=== PATIENT | female | born 1990 | race Caucasian/White ===

== ENCOUNTER 2024-06-10 00:09 | Emergency (ER) | payer SELFPAY ==
[~2024-06-10] VITALS: Ht 165.1 cm; Wt 52.0 kg
[2024-06-10 00:15] VITALS: O2SAT 98
[2024-06-10] MEDS: LORAZEPAM 2MG/ML INJ IM STA (01:07)
[2024-06-10] MEDS: DIPHENHYDRAMINE 50MG/ML VIAL IM STA (01:07)
[2024-06-10] MEDS: HALOPERIDOL LACTATE 5MG/ML VIAL IM STA (01:07)
[2024-06-10 01:43] LABS: BASOPHILS % 0.2 % (0.0-2.0); EOSINOPHILS % 0.2 % (0.0-5.0); HEMATOCRIT. 35.5 % (36.0-48.0); HEMOGLOBIN. 12.3 g/dL (12.0-16.0); LYMPHOCYTES % 19.1 % (20.0-50.0); MEAN CORPUSCULAR HEMOGLOBIN 31.1 pg (28.0-32.0); MEAN CORPUSCULAR HGB CONC 34.6 g/dL (31.0-37.0); MEAN CORPUSCULAR VOLUME 89.9 fL (81.0-99.0); MEAN PLATELET VOLUME 8.5 fl (7.4-10.4); MONOCYTES % 6.4 % (2.0-8.0); NEUTROPHILS % 74.1 % (40.0-76.0); PLATELET 302 x1000/uL (130-400); RED BLOOD CELL COUNT 3.95 mill/uL (4.2-5.4); RED CELL DISTRIBUTION WIDTH 12.3 % (11.6-14.6); WHITE BLOOD COUNT 11.9 x1000/uL (4.5-11.0)
[2024-06-10 02:05] LABS: CHLORIDE 104 mEq/L (98-107); POTASSIUM 2.9 mEq/L (3.5-5.1); SODIUM 141 mEq/L (136-145)
[2024-06-10 02:06] LABS: CARBON DIOXIDE 22 mEq/L (21-32)
[2024-06-10 02:07] LABS: CALCIUM 9.5 mg/dL (8.7-10.4)
[2024-06-10 02:10] LABS: *AMPHETAMINES SCREEN URINE NEGATIVE (NEGATIVE)
[2024-06-10 02:11] LABS: *BARBITURATES SCREEN URINE NEGATIVE (NEGATIVE); *BENZODIAZEPINES SCREEN URINE NEGATIVE (NEGATIVE); *COCAINE SCREEN URINE NEGATIVE (NEGATIVE); METHADONE URINE SCREEN NEGATIVE (NEGATIVE); OPIATES URINE SCREEN NEGATIVE (NEGATIVE); UREA NITROGEN BLOOD 20 mg/dL (9-23)
[2024-06-10 02:12] LABS: CANNABINOID URINE SCREEN NEGATIVE (NEGATIVE); ECSTASY MDMA SCREEN URINE NEGATIVE (NEGATIVE); GLUCOSE 116 mg/dL (70-105); PHENCYCLIDINE URINE SCREEN NEGATIVE (NEGATIVE)
[2024-06-10 02:13] LABS: ACETAMINOPHEN < 2 ug/mL (10-30); ALANINE AMINOTRANSFERASE 15 IU/L (10-49); ALBUMIN 4.7 g/dL (3.2-4.8); ASPARTATE AMINOTRANSFERASE 35 IU/L (<34)
[2024-06-10 02:14] LABS: BILIRUBIN DIRECT 0.3 mg/dL (<=3.0); PROTEIN TOTAL 7.6 g/dL (6.0-8.3); THYROID STIMULATING HORMONE 1.55 uIU/mL (0.55-4.78)
[2024-06-10] MEDS: POTASSIUM CHLORIDE 20MEQ/PACKET PO ONE (02:15)
[2024-06-10 02:16] LABS: ETHANOL BLOOD < 10 mg/dL (<10)
[2024-06-10 02:19] LABS: HCG SCREEN NEGATIVE
[2024-06-10 09:26] LABS: CHLORIDE 109 mEq/L (98-107); POTASSIUM 3.2 mEq/L (3.5-5.1)
[2024-06-10 09:27] LABS: CARBON DIOXIDE 25 mEq/L (21-32); SODIUM 142 mEq/L (136-145)
[2024-06-10 09:28] LABS: CALCIUM 8.7 mg/dL (8.7-10.4)
[2024-06-10 09:33] LABS: CREATININE 0.7 mg/dL (0.6-1.0); GLUCOSE 78 mg/dL (70-105); UREA NITROGEN BLOOD 18 mg/dL (9-23)
[2024-06-10 17:35] LABS: CLARITY URINE CLOUDY (CLEAR); COLOR URINE YELLOW (YELLOW); GLUCOSE URINE NEGATIVE (NEGATIVE); KETONES URINE 4+ (NEGATIVE); LEUKOCYTE ESTERASE URINE TRACE (NEGATIVE); NITRITE URINE NEGATIVE (NEGATIVE); OCCULT BLOOD URINE 2+ (NEGATIVE); PROTEIN URINE 1+ (NEGATIVE); SPECIFIC GRAVITY URINE 1.032 (1.005-1.030)
[2024-06-10 17:47] LABS: BACTERIA URINE TRACE; SQUAMOUS EPITHELIAL CELL URINE 1+ /lpf (RARE/1+)
[2024-06-11] MEDS ORDERED: CEPHALEXIN 250MG/5ML ORAL SYRINGE PO SCH (02:00)
[2024-06-11] MEDS: POTASSIUM CHLORIDE 20MEQ/PACKET PO ONE (03:12)
[2024-06-11] MEDS: CEPHALEXIN 250MG CAPSULE PO NR (03:13)
[2024-06-11 07:11] LABS: CHLORIDE 110 mEq/L (98-107); POTASSIUM 4.1 mEq/L (3.5-5.1); SODIUM 143 mEq/L (136-145)
[2024-06-11 07:12] LABS: CALCIUM 8.8 mg/dL (8.7-10.4); CARBON DIOXIDE 25 mEq/L (21-32)
[2024-06-11 07:17] LABS: CREATININE 0.8 mg/dL (0.6-1.0); GLUCOSE 90 mg/dL (70-105); UREA NITROGEN BLOOD 13 mg/dL (9-23)
[2024-06-11] MEDS ORDERED: CEPHALEXIN 250MG CAPSULE PO SCH (09:00)
[2024-06-11 15:15] VITALS: BP 119/64; PULSE 80; RESP 16; TEMP 37.1; O2SAT 99
== END 2024-06-11 16:06 | disposition home or self-care (01) ==
LOC: ER 00:09
DX: E87.6 Hypokalemia (principal); R45.1 Restlessness and agitation; R46.89 Other symptoms and signs involving appearance and behavior; Z79.899 Other long term (current) drug therapy; Z20.822 Contact with and (suspected) exposure to COVID-19
CPT/HCPCS: 80076; 80305; 80048 ×2; 81003; 80307; 80329; 80320; 84703; 84443; 85025; 36415 ×2; 93005; 96372; 99291; 87426; J1200; J1630; J2060; Z7610; G0480